=== PATIENT | male | born 1960 | race Caucasian/White ===

== ENCOUNTER 2020-12-18 14:05 | Emergency (ER) | payer OTHER, SELFPAY ==
[2020-12-18 14:13] VITALS: BP 136/91; PULSE 72; RESP 18; TEMP 37; O2SAT 98; BMI 28.2
[2020-12-18] MEDS: KETOROLAC 60 MG/2 ML VIAL 30 MG IM (14:42)
--- NOTE | 2020-12-18 15:17 | ED_ITS ---
HPI - URI/Sore Throat <DOMO Barlow-BC - Last Filed: 12/18/20 15:23> General Chief Complaint: Upper Respiratory Symptoms Stated Complaint: Ear infection Time Seen by Provider: 12/18/20 14:10 Source: patient Mode of arrival: Ambulatory Limitations: no limitations History of Present Illness HPI Narrative: The patient is a 60-year-old male nonsmoker who denies pertinent medical history presents with a chief complaint of left-sided ear pain since . He was seen at one of the [facility] on Saturday, prescribed a antihistamine nasal spray as well as antibiotic drops for his left ear. He denies any fevers muscle aches or chills. He states that his ear is not improving and is getting worse. He has not taken anything for pain other than ?a few aspirin this morning.He only started using the nasal spray recently and has had one dose of it. He denies any cough. He does complain of some left- sided sinus pain that radiates to his jaw. He states that he was also told that he has eustachian tube dysfunction. He has not tried any sinus rinses. Related Data Home Medications Medication Instructions Recorded Confirmed [testosterone] INJ WEEKLY #0 10/30/16 Previous Rx's Medication Instructions Recorded dextroamphetamine-amphetamine 25 mg PO QDAYP PRN #28 cap 06/07/17 [Adderall XR] fluticasone propionate 1 spray INTRANASAL DAILY 14 Days 12/18/20 #15.8 ml ketorolac 10 mg PO TID PRN #14 tab 12/18/20 Allergies Allergy/AdvReac Type Severity Reaction Status Date / Time No Known Allergies Allergy Unknown Unverified 12/18/20 14:37 [NO KNOWN ALLERGIES] Review of Systems <MARITZA BarlowBC - Last Filed: 12/18/20 15:23> Review of Systems Narrative: GENERAL: Denies chills, fatigue, malaise, fever, sweats. HEENT: See HPI RESPIRATORY: Denies dyspnea, cough, wheezing, hemoptysis, sputum. CARDIOVASCULAR: Denies chest pain, palpitations, orthopnea, edema, GASTROINTESTINAL: Denies nausea, vomiting, abdominal pain, diarrhea, constipation, melena. : Denies dysuria, frequency, incontinence, hematuria, urinary retention. MUSCULOSKELETAL: denies weakness, joint pain, or bony pain SKIN: Denies rash, skin lesions, or other NEUROLOGIC: Denies weakness, headache, numbness, change in speech, confusion, seizures, incoordination. PSYCHIATRIC: No concerning psychosocial issues. 12 point review of systems is negative except for those stated above Patient History <Tawny WoodsDOMO-BC - Last Filed: 12/18/20 15:23> Family History (Updated 11/01/16 @ 00:00 by Conversion Provider) Father Age: 93 Intestinal cancer Social History Smoking Status: Never smoker Smoking Status: Never smoker alcohol intake frequency: 0-2 drinks per day Substance Use Type: marijuana Exam <Tawny WoodsZENOBIA - Last Filed: 12/18/20 15:23> Narrative Exam Narrative: GENERAL: This is a well-nourished, well-developed patient, in no acute distress HEAD: Atraumatic. Normocephalic. No temporal or scalp tenderness. EYES: Pupils equal round and reactive. Extraocular motions intact. No scleral icterus. No injection or drainage. ENT: Nose without bleeding, purulent drainage or septal hematoma. Throat without erythema, tonsillar hypertrophy or exudate. Uvula midline. Airway patent. Right TM pearly alvarado with slightly bulging. Left TM with slight scar tissue noted, but non erythematous, slightly bulging. No pain to palpation of left pinna. No visual abnormality or erythema or drainage noted left ear canal., sounding noted posterior pharynx. NECK: Trachea midline. No JVD or lymphadenopathy. Supple, nontender, no meningeal signs. CARDIOVASCULAR: Regular rate and rhythm RESPIRATORY: Clear to auscultation. Breath sounds equal bilaterally. No wheezes, rales, or rhonchi. No cough. No increased respiratory effort. No accessory muscle use. BACK: Nontender without deformity or crepitance. No flank tenderness. NEURO: AOx3. SKIN: No rash or erythema on visible skin Initial Vital Signs Initial Vital Signs: Vital Signs Temperature 98.6 F 12/18/20 14:13 Pulse Rate 72 12/18/20 14:13 Respiratory Rate 18 12/18/20 14:13 Blood Pressure 136/91 H 12/18/20 14:13 Pulse Oximetry 98 12/18/20 14:13 <Radha Dowling DO - Last Filed: 12/26/20 10:23> Initial Vital Signs Initial Vital Signs: Vital Signs Temperature 98.6 F 12/18/20 14:13 Pulse Rate 72 12/18/20 14:13 Respiratory Rate 18 12/18/20 14:13 Blood Pressure 136/91 H 12/18/20 14:13 Pulse Oximetry 98 12/18/20 14:13 Scores <ZENOBIA Barlow - Last Filed: 12/18/20 15:23> GCS Coffeen coma scale eye opening: Spontaneous Jocelyne coma scale verbal response: Orientated Jocelyne coma scale motor response: Obey commands Jocelyne coma scale total score: 15 Course <ZENOBIA Barlow - Last Filed: 12/18/20 15:23> Orders Ordered: Discontinued Medications Ketorolac Tromethamine (Ketorolac 60 Mg/2 Ml Vial) 30 mg IM NOW ONE Stop: 12/18/20 14:39 Last Admin: 12/18/20 14:42 Dose: 30 mg Documented by: BTONER Vital Signs Vital signs: Vital Signs - 8 hr 12/18/20 14:13 Temperature 98.6 F Pulse Rate 72 Respiratory Rate 18 Blood Pressure 136/91 H Pulse Oximetry 98 <Radha Dowling DO - Last Filed: 12/26/20 10:23> Orders Ordered: Discontinued Medications Ketorolac Tromethamine (Ketorolac 60 Mg/2 Ml Vial) 30 mg IM NOW ONE Stop: 12/18/20 14:39 Last Admin: 12/18/20 14:42 Dose: 30 mg Documented by: BTONER Vital Signs Vital signs: Vital Signs - 8 hr 12/18/20 14:13 Temperature 98.6 F Pulse Rate 72 Respiratory Rate 18 Blood Pressure 136/91 H Pulse Oximetry 98 MDM - URI/Sore Throat <ZENOBIA Barlow - Last Filed: 12/18/20 15:23> MDM Narrative Medical decision making narrative: The patient is a 60-year-old male who presents with a chief complaint of persistent left ear pain. Exam indicates no infection of acute bacterial etiology. The patient did seem a bit dismayed, stating he hope to ?just get antibiotics and be done with it. I did discuss with his sinus complaints to be re-evaluated if they persist once they cross the line of being viral versus bacterial at approximately 10:14 a.m. today. However encouraged him to use the antihistamine nasal spray provided by his previous provider. I also instructed to use of Flonase, NeilMed sinus rinse etcetera. Encouraged use of decongestant or allergy medicine as well. Discussed monitor for signs of systemic illness such as fevers, Toradol given for pain in the em ergency department and small prescription provided. Patient has no questions or concerns upon discharge states understanding of return precautions as well as follow-up care. Discharge Plan Departure Patient Disposition: Home Clinical Impression: Acute otalgia Qualifiers: Laterality: left Qualified Code(s): H92.02 - Otalgia, left ear Dysfunction of eustachian tube Qualifiers: Laterality: bilateral Qualified Code(s): H69.83 - Other specified disorders of Eustachian tube, bilateral Instructions: DI for Eustachian Tube Dysfunction-Adult, DI for Ear Pain-Adult Activity Restrictions/Additional Instructions: Thank you for trusting us with your care today As discussed, there is no evidence of ear infection that would require oral antibiotics at this point time. I sent in 2 prescriptions to [facility] for you. One is ketorolac or Toradol for pain. The other prescription is for Flonase to help decrease inflammation in her sinuses. I also suggest use of NeilMed sinus rinse or Neti pot. I have given you a prescription of Toradol. This is an NSAID. Do not combine it with other NSAIDs such as Aleve or ibuprofen. I suggest taking it with some food, as it can irritate your stomach. Please continue the previously prescribed remedies given to you by Rob MATHEW Please follow-up with primary care provider in the next few days Please come back to the emergency department for any acute concerns Prescriptions: New ketorolac 10 mg tablet 10 mg PO TID PRN (Reason: pain) Qty: 14 RF: 0 fluticasone propionate 50 mcg/actuation spray,suspension 1 spray intranasal DAILY 14 Days Qty: 15.8 RF: 0 No Action [testosterone] INJ WEEKLY Qty: 0 RF: 0 dextroamphetamine-amphetamine [Adderall XR] 25 MG capsule,extended release 24hr 25 mg PO QDAYP PRNQty: 28 RF: 0 Referrals: Ritesh Briggs MD [Primary Care Provider] - <Radha Dowling DO - Last Filed: 12/26/20 10:23> Cosign ED Attending Cosignature Attestation: I was immediately available in the department for consultation. Documentation has been reviewed. I agree with assessment and plan.
== END 2020-12-18 15:17 | disposition home or self-care (01) ==
PROVIDERS: Emergency Provider Nurse Practitioner Family; PCP Family Medicine
DX: H92.02 Otalgia, left ear (principal); H69.83 Other specified disorders of Eustachian tube, bilateral
CPT/HCPCS: 96372; 99281; 99283; J1885

== ENCOUNTER → 2023-09-03 13:17 | Outpatient (CLI) | payer OTHER, SELFPAY ==
--- NOTE | 2023-09-03 13:21 | DI.RAD.S_ITS ---
PROCEDURE: XR HIP W PEL IF DONE LT 2V INDICATIONS: Left hip pain worsening x 6 days TECHNIQUE: 2 views of the hip were acquired. COMPARISON: None. FINDINGS: Bones: No fractures or dislocations. No suspicious bony lesions. The visualized pelvic ring appears intact. Nonuniform joint space narrowing with osteophytic lipping of the acetabulum and subchondral cystic change. Soft tissues: No suspicious soft tissue calcifications or masses. IMPRESSION: Moderate left hip osteoarthritis. Dictated by: Salvador Landers M.D. on 09/03/2023 at 14:52 Approved by: Salvador Landers M.D. on 09/03/2023 at 14:53
== END ==
PROVIDERS: PCP Family Medicine; Referring Provider Physician Assistant; Visit Provider Physician Assistant
DX: M16.12 Unilateral primary osteoarthritis, left hip (principal); M25.552 Pain in left hip
CPT/HCPCS: 73502